=== PATIENT | female | born 1945 | race African-American/Black ===

== ENCOUNTER → 2016-07-10 | Outpatient (CLI) | payer MEDICARE, MEDICAID ==
[~2016-07-10] MED LIST: ALLO300 PO; AMLO-511 PO; ARIP15TA3 PO; ATOR20TA86 PO; BUSP15 PO; CARV6.2579 PO; DEXL60CA3 PO; FAMO20 PO; FURO40 PO; IPRA4AER IH; LETR2.5 PO; MIRT15 PO; MULT-178 PO; POTA8CAP10 PO; QUET200T PO; TRAZ150 PO; VALS160T2 PO; VENL-67 PO; WARF3TAB29 PO
[2016-07-10 12:14] LABS: BASOPHILS # (AUTO) 0.02 K/uL (0.00-0.20); BASOPHILS % (AUTO) 0.6 % (0.0-2.0); EOSINOPHILS # (AUTO) 0.01 K/uL (0.00-0.70); EOSINOPHILS % (AUTO) 0.19 % (1.0-6.0); HEMATOCRIT 27.9 % (36-46); LYMPHOCYTES % (AUTO) 23.5 % (22.0-44.0); MEAN CORPUSCULAR HEMOGLOBIN 27.5 pg (26.0-34.0); MEAN CORPUSCULAR HGB CONC 32.2 G/dL (31.0-37.0); MEAN CORPUSCULAR VOLUME 85 fL (80-100); MONOCYTES # (AUTO) 0.3 K/uL (0.1-1.0); MONOCYTES % (AUTO) 6.8 % (2.0-9.0); NEUTROPHILS # (AUTO) 2.8 K/uL (1.8-7.7); PLATELET COUNT (AUTO) 186 K/uL (150-450); RED BLOOD CELL COUNT(AUTO) 3.26 MIL/uL (4.00-5.20); RED CELL DISTRIBUTION WIDTH 18.8 % (11.5-14.5); WHITE BLOOD COUNT (AUTO) 4.1 K/uL (4.5-11.0)
[2016-07-10 12:19] LABS: HEMOGLOBIN A1C 5.4 % (4.5-6.2)
[2016-07-10 12:29] LABS: ALBUMIN 3.3 g/dL (3.4-5.0); BILIRUBIN,TOTAL 0.2 mg/dL (0.1-1.0); CALCIUM, TOTAL 9.3 mg/dL (8.8-10.5); CHOL/HDL RATIO 2.2 (3.9-5.7); CREATININE 1.98 mg/dL (0.60-1.30); POTASSIUM 4.6 mmol/L (3.5-5.1); THYROID STIMULATING HORMONE 2.44 uIU/mL (0.36-3.74); TOTAL PROTEIN, SERUM 6.7 g/dL (6.4-8.2)
== END | disposition home or self-care (01) ==
LOC: LABPV 10:26
PROVIDERS: ATTEND Internal Medicine Cardiovascular Disease
DX: I11.0 Hypertensive heart disease with heart failure (principal); I50.9 Heart failure, unspecified; E11.8 Type 2 diabetes mellitus with unspecified complications; E55.9 Vitamin D deficiency, unspecified
CPT/HCPCS: 82306; 83036; 84439; 84443

== ENCOUNTER 2017-08-03 12:33 | Emergency (ER) | payer MEDICARE, MEDICAID ==
[~2017-08-03] VITALS: Ht 165.1 cm; Wt 86.4 kg
[~2017-08-03 12:33] MED LIST changes: +ARIP15TA2 PO; -ARIP15TA3 PO
[2017-08-03] MEDS ORDERED: APIX2.5T PO (12:50)
[2017-08-03] MEDS ORDERED: LORA1TAB3 PO (12:50)
[2017-08-03] MEDS ORDERED: DEXL60CA3 PO (12:50)
[2017-08-03] MEDS ORDERED: BUME1TAB17 PO (12:50)
[2017-08-03] MEDS ORDERED: ASPI-556 PO (12:50)
[2017-08-03] MEDS ORDERED: PANT40TA25 PO (12:50)
[2017-08-03] MEDS ORDERED: ALPR0.255 PO (12:50)
[2017-08-03] MEDS ORDERED: CAPT12.55 PO (12:50)
[2017-08-03 15:02] LABS: BASOPHILS % (AUTO) 1.1 % (0.0-2.0); EOSINOPHILS % (AUTO) 0.5 % (1.0-6.0); HEMATOCRIT 33.4 % (36-46); HEMOGLOBIN 11.1 g/dL (12.0-16.0); LYMPHOCYTES # (AUTO) 1.2 K/uL (1.0-4.8); LYMPHOCYTES % (AUTO) 17.8 % (22.0-44.0); MEAN CORPUSCULAR HEMOGLOBIN 28.2 pg (26.0-34.0); MEAN CORPUSCULAR HGB CONC 33.2 G/dL (31.0-37.0); MEAN CORPUSCULAR VOLUME 85 fL (80-100); MONOCYTES # (AUTO) 0.4 K/uL (0.1-1.0); MONOCYTES % (AUTO) 5.8 % (2.0-9.0); NEUTROPHILS # (AUTO) 4.8 K/uL (1.8-7.7); NEUTROPHILS % (AUTO) 74.8 % (40.0-70.0); PLATELET COUNT (AUTO) 195 K/uL (150-450); RED BLOOD CELL COUNT(AUTO) 3.94 MIL/uL (4.00-5.20); RED CELL DISTRIBUTION WIDTH 15.7 % (11.5-14.5)
[2017-08-03 15:10] LABS: ANION GAP 0 mmol/L (8-16); CALCIUM, TOTAL 10.4 mg/dL (8.8-10.5); CARBON DIOXIDE 32 mmol/L (22-29); CHLORIDE 100 mmol/L (98-107); GLOMERULAR FILTR. RATE CALC 36 mL/min (>60); GLUCOSE,RANDOM 100 mg/dL (70-110); POTASSIUM 3.6 mmol/L (3.5-5.1); SODIUM SERUM 132 mmol/L (136-145); UREA NITROGEN, BLOOD 29 mg/dL (7-18)
[2017-08-03 15:26] LABS: B-TYPE NATRIURETIC PEPTIDE 243 pg/mL (0-100)
[2017-08-03 15:32] LABS: ALANINE AMINOTRANSFERASE 32 U/L (12-78); ALBUMIN 3.9 g/dL (3.4-5.0); ALKALINE PHOSPHATASE 152 U/L (46-116); ASPARTATE AMINOTRANSFERASE 44 U/L (15-37); BILIRUBIN,TOTAL 0.4 mg/dL (0.1-1.0); CREATINE KINASE MB 4.4 ng/mL (0-5); TOTAL PROTEIN, SERUM 7.3 g/dL (6.4-8.2)
[2017-08-03 15:35] LABS: CREATINE KINASE, TOTAL 1460 U/L (26-192)
[2017-08-03 16:30] VITALS: BP 146/100
== END 2017-08-03 17:31 | disposition home or self-care (01) ==
LOC: EMS 12:34
DX: J44.9 Chronic obstructive pulmonary disease, unspecified (principal); J45.909 Unspecified asthma, uncomplicated; I11.0 Hypertensive heart disease with heart failure; I50.9 Heart failure, unspecified; Z95.0 Presence of cardiac pacemaker; Z79.82 Long term (current) use of aspirin
CPT/HCPCS: 93005; 93971; 99285

== ENCOUNTER 2017-10-29 17:20 | Emergency (ER) | payer MEDICARE, MEDICAID ==
[~2017-10-29] VITALS: Ht 167.6 cm; Wt 0.9 kg
[~2017-10-29 17:20] MED LIST changes: +ALPR0.255 PO; -AMLO-511 PO; +APIX2.5T PO; +ASPI-556 PO; +BUME1TAB17 PO; +CAPT12.55 PO; +LORA1TAB3 PO; +PANT40TA25 PO; -WARF3TAB29 PO
[2017-10-29] MEDS ORDERED: ACETAMINOPHEN 500 MG TABLET PO ONE (17:45)
[2017-10-29 17:58] LABS: GLUCOSE,POINT OF CARE 106 MG/DL (70-110)
[2017-10-29 18:10] LABS: BASOPHILS % (AUTO) 1.2 % (0.0-2.0); EOSINOPHILS % (AUTO) 0.7 % (1.0-6.0); HEMATOCRIT 32.5 % (36-46); HEMOGLOBIN 10.8 g/dL (12.0-16.0); LYMPHOCYTES # (AUTO) 1.1 K/uL (1.0-4.8); LYMPHOCYTES % (AUTO) 17.4 % (22.0-44.0); MEAN CORPUSCULAR HEMOGLOBIN 28.3 pg (26.0-34.0); MEAN CORPUSCULAR HGB CONC 33.1 G/dL (31.0-37.0); MEAN CORPUSCULAR VOLUME 86 fL (80-100); MONOCYTES # (AUTO) 0.5 K/uL (0.1-1.0); MONOCYTES % (AUTO) 8.3 % (2.0-9.0); NEUTROPHILS # (AUTO) 4.7 K/uL (1.8-7.7); NEUTROPHILS % (AUTO) 72.4 % (40.0-70.0); PLATELET COUNT (AUTO) 161 K/uL (150-450); RED BLOOD CELL COUNT(AUTO) 3.81 MIL/uL (4.00-5.20); RED CELL DISTRIBUTION WIDTH 17.1 % (11.5-14.5)
[2017-10-29 18:19] LABS: CALCIUM, TOTAL 10.1 mg/dL (8.8-10.5); CREATININE 1.28 mg/dL (0.60-1.30); POTASSIUM 3.5 mmol/L (3.5-5.1)
[2017-10-29 18:25] LABS: ALBUMIN 3.4 g/dL (3.4-5.0); BILIRUBIN,TOTAL 0.4 mg/dL (0.1-1.0)
[2017-10-29 21:56] VITALS: BP 163/77
== END 2017-10-29 22:33 | disposition home or self-care (01) ==
LOC: EMS 17:21
DX: M79.632 Pain in left forearm (principal); M19.90 Unspecified osteoarthritis, unspecified site; I48.91 Unspecified atrial fibrillation; J45.909 Unspecified asthma, uncomplicated; I11.0 Hypertensive heart disease with heart failure; I50.9 Heart failure, unspecified; E11.9 Type 2 diabetes mellitus without complications; Z95.0 Presence of cardiac pacemaker; Z79.899 Other long term (current) drug therapy
CPT/HCPCS: 51701; 70450; 93005; 93971; 99285

== ENCOUNTER → 2018-08-09 | Outpatient (CLI) | payer MEDICARE, MEDICAID ==
[~2018-08-09] MED LIST changes: -ALPR0.255 PO; +ARIP10TA8 PO; -ARIP15TA2 PO; -ASPI-556 PO; -BUME1TAB17 PO; -CAPT12.55 PO; +CEPH500 PO; -DEXL60CA3 PO; +LOSA50TA64 PO; -PANT40TA25 PO; -QUET200T PO; -VENL-67 PO; +VENL-68 PO
[2018-08-09 12:26] LABS: BASOPHILS % (AUTO) 0.9 % (0.0-2.0); EOSINOPHILS % (AUTO) 0.1 % (1.0-6.0); HEMATOCRIT 37.3 % (36-46); HEMOGLOBIN 11.9 g/dL (12.0-16.0); LYMPHOCYTES # (AUTO) 1.2 K/uL (1.0-4.8); LYMPHOCYTES % (AUTO) 23.3 % (22.0-44.0); MEAN CORPUSCULAR HEMOGLOBIN 27.5 pg (26.0-34.0); MEAN CORPUSCULAR HGB CONC 31.9 G/dL (31.0-37.0); MEAN CORPUSCULAR VOLUME 86 fL (80-100); MONOCYTES # (AUTO) 0.4 K/uL (0.1-1.0); MONOCYTES % (AUTO) 7.3 % (2.0-9.0); NEUTROPHILS # (AUTO) 3.5 K/uL (1.8-7.7); NEUTROPHILS % (AUTO) 68.4 % (40.0-70.0); PLATELET COUNT (AUTO) 167 K/uL (150-450); RED BLOOD CELL COUNT(AUTO) 4.33 MIL/uL (4.00-5.20); RED CELL DISTRIBUTION WIDTH 17.6 % (11.5-14.5)
[2018-08-09 12:46] LABS: HEMOGLOBIN A1C 5.9 % (4.5-6.2)
[2018-08-09 12:58] LABS: ALBUMIN 3.6 g/dL (3.4-5.0); BILIRUBIN,TOTAL 0.5 mg/dL (0.1-1.0); CALCIUM, TOTAL 10.2 mg/dL (8.8-10.5); CHOL/HDL RATIO 2.7 (3.9-5.7); CREATININE 1.91 mg/dL (0.60-1.30); FREE T4 (FREE THYROXINE) 1.15 ng/dL (0.76-1.46); MAGNESIUM 2.3 mg/dL (1.80-2.40); THYROID STIMULATING HORMONE 1.91 uIU/mL (0.36-3.74); TOTAL PROTEIN, SERUM 7.6 g/dL (6.4-8.2)
== END | disposition home or self-care (01) ==
LOC: LABPV 11:10
PROVIDERS: ATTEND Internal Medicine Cardiovascular Disease
DX: I11.0 Hypertensive heart disease with heart failure (principal); I50.9 Heart failure, unspecified; E11.9 Type 2 diabetes mellitus without complications; E55.9 Vitamin D deficiency, unspecified; D56.5 Hemoglobin E-beta thalassemia
CPT/HCPCS: 82306; 83036; 83735; 84439; 84443

== ENCOUNTER → 2019-03-31 | Outpatient (CLI) | payer MEDICARE, MEDICAID ==
[~2019-03-31] MED LIST changes: +LORA-1000 PO; -LORA1TAB3 PO; +MIRT-92 PO; -MIRT15 PO; -POTA8CAP10 PO; +POTA8CAP20 PO
[2019-03-31 10:15] LABS: BASOPHILS % (AUTO) 0.7 % (0.0-2.0); EOSINOPHILS % (AUTO) 1.3 % (1.0-6.0); HEMATOCRIT 30.6 % (36-46); HEMOGLOBIN 9.9 g/dL (12.0-16.0); LYMPHOCYTES # (AUTO) 1.2 K/uL (1.0-4.8); LYMPHOCYTES % (AUTO) 19.9 % (22.0-44.0); MEAN CORPUSCULAR HEMOGLOBIN 27.5 pg (26.0-34.0); MEAN CORPUSCULAR HGB CONC 32.3 G/dL (31.0-37.0); MEAN CORPUSCULAR VOLUME 85 fL (80-100); MONOCYTES # (AUTO) 0.4 K/uL (0.1-1.0); MONOCYTES % (AUTO) 6.7 % (2.0-9.0); NEUTROPHILS # (AUTO) 4.2 K/uL (1.8-7.7); NEUTROPHILS % (AUTO) 71.4 % (40.0-70.0); PLATELET COUNT (AUTO) 160 K/uL (150-450); RED BLOOD CELL COUNT(AUTO) 3.59 MIL/uL (4.00-5.20); RED CELL DISTRIBUTION WIDTH 16.9 % (11.5-14.5)
[2019-03-31 10:48] LABS: ALBUMIN 3.4 g/dL (3.4-5.0); BILIRUBIN,TOTAL 0.5 mg/dL (0.1-1.0); CALCIUM, TOTAL 9.5 mg/dL (8.8-10.5); CHOL/HDL RATIO 2.3 (3.9-5.7); CREATININE 1.32 mg/dL (0.60-1.30); FREE T4 (FREE THYROXINE) 1.17 ng/dL (0.76-1.46); HEMOGLOBIN A1C 5.7 % (4.5-6.2); POTASSIUM 3.7 mmol/L (3.5-5.1); THYROID STIMULATING HORMONE 2.44 uIU/mL (0.36-3.74); TOTAL PROTEIN, SERUM 6.7 g/dL (6.4-8.2)
== END | disposition home or self-care (01) ==
LOC: LABPV 08:52
PROVIDERS: ATTEND Internal Medicine Cardiovascular Disease
DX: I11.0 Hypertensive heart disease with heart failure (principal); I50.9 Heart failure, unspecified; E11.8 Type 2 diabetes mellitus with unspecified complications; E55.9 Vitamin D deficiency, unspecified; D56.5 Hemoglobin E-beta thalassemia
CPT/HCPCS: 82306; 83036; 83735; 84439; 84443

== ENCOUNTER → 2019-05-31 | Outpatient (CLI) | payer MEDICARE, MEDICAID ==
[~2019-05-31] MED LIST changes: +LOSA-88 PO; -LOSA50TA64 PO
[2019-05-31 11:38] LABS: BASOPHILS % (AUTO) 0.9 % (0.0-2.0); HEMATOCRIT 34.8 % (36-46); HEMOGLOBIN 11.2 g/dL (12.0-16.0); LYMPHOCYTES # (AUTO) 1.3 K/uL (1.0-4.8); LYMPHOCYTES % (AUTO) 25.9 % (22.0-44.0); MEAN CORPUSCULAR HEMOGLOBIN 26.7 pg (26.0-34.0); MEAN CORPUSCULAR HGB CONC 32.3 G/dL (31.0-37.0); MEAN CORPUSCULAR VOLUME 83 fL (80-100); MONOCYTES # (AUTO) 0.4 K/uL (0.1-1.0); NEUTROPHILS # (AUTO) 3.2 K/uL (1.8-7.7); NEUTROPHILS % (AUTO) 64.2 % (40.0-70.0); PLATELET COUNT (AUTO) 159 K/uL (150-450)
[2019-05-31 11:45] LABS: ALBUMIN 3.7 g/dL (3.4-5.0); BILIRUBIN,TOTAL 0.4 mg/dL (0.1-1.0); CALCIUM, TOTAL 10.5 mg/dL (8.8-10.5); CHOL/HDL RATIO 2.6 (3.9-5.7); CREATININE 1.46 mg/dL (0.60-1.30); POTASSIUM 3.8 mmol/L (3.5-5.1); TOTAL PROTEIN, SERUM 7.5 g/dL (6.4-8.2)
== END | disposition home or self-care (01) ==
LOC: LABPV 09:29
PROVIDERS: ATTEND Internal Medicine Cardiovascular Disease
DX: I11.0 Hypertensive heart disease with heart failure (principal); I50.9 Heart failure, unspecified; E11.8 Type 2 diabetes mellitus with unspecified complications; E55.9 Vitamin D deficiency, unspecified; D56.5 Hemoglobin E-beta thalassemia

== ENCOUNTER 2019-10-10 21:33 | Inpatient (IN) | payer MEDICARE, MEDICAID ==
[~2019-10-10] VITALS: Ht 165.1 cm; Wt 81.1 kg
[~2019-10-10 21:33] MED LIST changes: -CEPH500 PO; -FURO40 PO; -LETR2.5 PO; -LORA-1000 PO; -LOSA-88 PO; +LOSA50TA37 PO; -MIRT-92 PO; -POTA8CAP20 PO; -TRAZ150 PO; -VALS160T2 PO
[2019-10-10] MEDS ORDERED: FURO40 PO (22:02)
[2019-10-11 00:41] LABS: LYMPHOCYTES # (AUTO) 0.6 K/uL (1.0-4.8); NEUTROPHILS # (AUTO) 3.7 K/uL (1.8-7.7)
[2019-10-11 00:44] LABS: BASOPHILS % (AUTO) 0.7 % (0.0-2.0); EOSINOPHILS % (AUTO) 0.1 % (1.0-6.0); HEMATOCRIT 29.6 % (36-46); HEMOGLOBIN 9.9 g/dL (12.0-16.0); LYMPHOCYTES % (AUTO) 12.1 % (22.0-44.0); MEAN CORPUSCULAR HEMOGLOBIN 28.3 pg (26.0-34.0); MEAN CORPUSCULAR HGB CONC 33.3 G/dL (31.0-37.0); MEAN CORPUSCULAR VOLUME 85 fL (80-100); MONOCYTES # (AUTO) 0.4 K/uL (0.1-1.0); MONOCYTES % (AUTO) 8.2 % (2.0-9.0); NEUTROPHILS % (AUTO) 78.9 % (40.0-70.0); PLATELET COUNT (AUTO) 162 K/uL (150-450); RED BLOOD CELL COUNT(AUTO) 3.48 MIL/uL (4.00-5.20); RED CELL DISTRIBUTION WIDTH 16.5 % (11.5-14.5)
[2019-10-11 00:54] LABS: ANION GAP 12 mmol/L (8-16); CALCIUM, TOTAL 9.1 mg/dL (8.8-10.5); CARBON DIOXIDE 27 mmol/L (22-29); CHLORIDE 102 mmol/L (98-107); CREATININE 1.34 mg/dL (0.60-1.30); GLOMERULAR FILTR. RATE CALC 47 mL/min (>60); GLUCOSE,RANDOM 107 mg/dL (70-110); POTASSIUM 4.3 mmol/L (3.5-5.1); SODIUM SERUM 141 mmol/L (136-145); UREA NITROGEN, BLOOD 13 mg/dL (7-18)
[2019-10-11 01:00] LABS: ALANINE AMINOTRANSFERASE 29 U/L (12-78); ALBUMIN 3.2 g/dL (3.4-5.0); ALKALINE PHOSPHATASE 117 U/L (46-116); ASPARTATE AMINOTRANSFERASE 21 U/L (15-37); BILIRUBIN,TOTAL 0.6 mg/dL (0.1-1.0); LIPASE 32 U/L (73-393); TOTAL PROTEIN, SERUM 6.2 g/dL (6.4-8.2)
[2019-10-11 01:06] LABS: B-TYPE NATRIURETIC PEPTIDE 460 pg/mL (0-100)
[2019-10-11] MEDS ORDERED: FUROSEMIDE 40 MG/4 ML VIAL IVP ONE (02:00)
[2019-10-11] MEDS: OXYGEN THERAPY IH SCH ×2 (02:11→07:09)
[2019-10-11] MEDS ORDERED: ONDANSETRON HCL 4 MG/2 ML VIAL IVP PRN ×2 (02:15→13:30)
[2019-10-11] MEDS ORDERED: ACETAMINOPHEN 325 MG TABLET PO PRN ×2 (02:15→13:30)
[2019-10-11] MEDS ORDERED: CARVEDILOL 3.125 MG TABLET PO ONE (02:15)
[2019-10-11] MEDS ORDERED: APIXABAN 2.5 MG TABLET PO ONE (02:15)
[2019-10-11] MEDS ORDERED: 0.9% SODIUM CHLORIDE 10 ML SYRINGE IVP PRN (02:15)
[2019-10-11] MEDS ORDERED: ARIPiprazole 10 MG TABLET PO ONE (02:15)
[2019-10-11 02:25] LABS: AMPHET/METH SCREEN,URINE NEGATIVE (NEGATIVE); BARBITURATE SCREEN, URINE NEGATIVE (NEGATIVE); BENZODIAZEPINES SCREEN,URINE NEGATIVE (NEGATIVE); CANNABINOID SCREEN,URINE NEGATIVE (NEGATIVE); COCAINE SCREEN,URINE NEGATIVE (NEGATIVE); METHADONE SCREEN, URINE NEGATIVE (NEGATIVE); OPIATE SCREEN,URINE NEGATIVE (NEGATIVE)
[2019-10-11 02:27] LABS: PHENCYCLIDINE SCREEN,URINE NEGATIVE (NEGATIVE)
[2019-10-11 07:31] LABS: GLUCOSE,POINT OF CARE 94 MG/DL (70-110)
[2019-10-11 10:45] VITALS: BP 148/57
[2019-10-11 12:13] LABS: GLUCOMETER DEV NAME(LOC) AHU.; GLUCOSE,POINT OF CARE 98 MG/DL (70-110)
[2019-10-11 12:41] VITALS: BP 162/65
[2019-10-11] MEDS ORDERED: BISACODYL 10 MG RECTAL RECTAL SUPPOSITORY PR PRN (13:30)
[2019-10-11] MEDS ORDERED: MORPHINE SULFATE 2 MG/ML SYRINGE IVP PRN (13:30)
[2019-10-11] MEDS ORDERED: MAGNESIUM HYDROXIDE SUSPENSION 30 ML UDCUP PO PRN (13:30)
[2019-10-11] MEDS ORDERED: MULT-660 PO (13:40)
[2019-10-11 14:17] VITALS: BP 140/72
[2019-10-11 15:51] VITALS: BP 155/65
[2019-10-11] MEDS: HYDROCODONE/ACETAMINOPHEN 5-325 MG TABLET PO PRN ×2 (15:59→20:05)
[2019-10-11 17:34] LABS: C-REACTIVE PROTEIN QUANT 0.4 mg/dL (0.00-0.30)
[2019-10-11 18:00] LABS: D-DIMER 0.32 mg/L FEU (0.00-0.50); INR 1.2 (0.9-1.1); PROTHROMBIN TIME 12.3 SEC (9.4-11.6)
[2019-10-11 19:30] VITALS: BP 147/71
[2019-10-11] MEDS: ARIPiprazole 10 MG TABLET PO SCH (20:05)
[2019-10-11] MEDS: BusPIRone HCL 15 MG TABLET PO SCH (20:06)
[2019-10-11] MEDS: FUROSEMIDE 20 MG/2 ML VIAL IVP SCH (20:06)
[2019-10-11] MEDS: CARVEDILOL 6.25 MG TABLET PO SCH (20:06)
[2019-10-11] MEDS: DOCUSATE SODIUM 100 MG CAPSULE PO SCH (20:06)
[2019-10-11] MEDS: APIXABAN 2.5 MG TABLET PO SCH (20:06)
[2019-10-11 20:52] LABS: GLUCOMETER DEV NAME(LOC) AHU.; GLUCOSE,POINT OF CARE 113 MG/DL (70-110)
[2019-10-11 22:30] VITALS: BP 158/70
[2019-10-12 00:30] VITALS: BP 140/79
[2019-10-12] MEDS: ALBUTEROL SULFATE HFA 90 MCG/PUFF 8 GM INHALER IH PRN ×2 (04:49→12:14)
[2019-10-12 04:50] VITALS: BP 115/77
[2019-10-12] MEDS: HYDROCODONE/ACETAMINOPHEN 5-325 MG TABLET PO PRN (04:59)
[2019-10-12 06:39] LABS: BASOPHILS % (AUTO) 0.9 % (0.0-2.0); EOSINOPHILS % (AUTO) 0.2 % (1.0-6.0); HEMATOCRIT 33.3 % (36-46); HEMOGLOBIN 10.9 g/dL (12.0-16.0); LYMPHOCYTES # (AUTO) 0.6 K/uL (1.0-4.8); LYMPHOCYTES % (AUTO) 14.1 % (22.0-44.0); MEAN CORPUSCULAR HGB CONC 32.8 G/dL (31.0-37.0); MEAN CORPUSCULAR VOLUME 85 fL (80-100); MONOCYTES # (AUTO) 0.4 K/uL (0.1-1.0); MONOCYTES % (AUTO) 9.5 % (2.0-9.0); NEUTROPHILS # (AUTO) 3.2 K/uL (1.8-7.7); NEUTROPHILS % (AUTO) 75.3 % (40.0-70.0); PLATELET COUNT (AUTO) 163 K/uL (150-450); RED CELL DISTRIBUTION WIDTH 16.4 % (11.5-14.5)
[2019-10-12 07:10] LABS: ALBUMIN 3.6 g/dL (3.4-5.0); BILIRUBIN,TOTAL 0.7 mg/dL (0.1-1.0); CALCIUM, TOTAL 9.6 mg/dL (8.8-10.5); CREATININE 1.24 mg/dL (0.60-1.30); MAGNESIUM 2.1 mg/dL (1.80-2.40); POTASSIUM 4.5 mmol/L (3.5-5.1); TOTAL PROTEIN, SERUM 6.5 g/dL (6.4-8.2)
[2019-10-12 08:39] VITALS: BP 145/86
[2019-10-12] MEDS: LOSARTAN POTASSIUM 50 MG TABLET PO SCH (08:39)
[2019-10-12] MEDS: FUROSEMIDE 20 MG/2 ML VIAL IVP SCH ×2 (08:39→20:51)
[2019-10-12] MEDS: DOCUSATE SODIUM 100 MG CAPSULE PO SCH ×2 (08:39→20:51)
[2019-10-12] MEDS: CARVEDILOL 6.25 MG TABLET PO SCH ×2 (08:39→20:51)
[2019-10-12] MEDS: PANTOPRAZOLE SODIUM 40 MG DR TABLET PO SCH (08:39)
[2019-10-12] MEDS: BusPIRone HCL 15 MG TABLET PO SCH ×2 (08:58→20:51)
[2019-10-12] MEDS: ALLOPURINOL 300 MG TABLET PO SCH (08:58)
[2019-10-12] MEDS: VENLAFAXINE HCL 150 MG ER CAPSULE PO SCH (08:58)
[2019-10-12] MEDS: APIXABAN 2.5 MG TABLET PO SCH ×2 (08:59→22:47)
[2019-10-12] MEDS ORDERED: CARV6 PO (11:13)
[2019-10-12 11:25] VITALS: BP 149/78
[2019-10-12] MEDS: LORazepam 1 MG TABLET PO PRN ×2 (12:08→20:51)
[2019-10-12 16:12] VITALS: BP 134/70
[2019-10-12 18:46] LABS: GLUCOMETER DEV NAME(LOC) 5S.2A; GLUCOSE,POINT OF CARE 106 MG/DL (70-110)
[2019-10-12] MEDS: ARIPiprazole 10 MG TABLET PO SCH (20:51)
[2019-10-12 20:54] VITALS: BP 128/52
[2019-10-13 00:30] VITALS: BP 126/65
[2019-10-13] MEDS: HYDROCODONE/ACETAMINOPHEN 5-325 MG TABLET PO PRN ×2 (04:22→20:14)
[2019-10-13 04:33] VITALS: BP 121/67
[2019-10-13 06:45] LABS: BASOPHILS % (AUTO) 0.7 % (0.0-2.0); EOSINOPHILS % (AUTO) 0.3 % (1.0-6.0); HEMATOCRIT 32.2 % (36-46); HEMOGLOBIN 10.4 g/dL (12.0-16.0); LYMPHOCYTES # (AUTO) 0.6 K/uL (1.0-4.8); LYMPHOCYTES % (AUTO) 13.1 % (22.0-44.0); MEAN CORPUSCULAR HEMOGLOBIN 27.9 pg (26.0-34.0); MEAN CORPUSCULAR HGB CONC 32.4 G/dL (31.0-37.0); MEAN CORPUSCULAR VOLUME 86 fL (80-100); MONOCYTES # (AUTO) 0.5 K/uL (0.1-1.0); MONOCYTES % (AUTO) 10.8 % (2.0-9.0); NEUTROPHILS # (AUTO) 3.3 K/uL (1.8-7.7); NEUTROPHILS % (AUTO) 75.1 % (40.0-70.0); PLATELET COUNT (AUTO) 160 K/uL (150-450); RED BLOOD CELL COUNT(AUTO) 3.74 MIL/uL (4.00-5.20); RED CELL DISTRIBUTION WIDTH 16.9 % (11.5-14.5)
[2019-10-13 07:05] LABS: ALBUMIN 3.3 g/dL (3.4-5.0); BILIRUBIN,TOTAL 0.5 mg/dL (0.1-1.0); CALCIUM, TOTAL 9.4 mg/dL (8.8-10.5); CREATININE 1.1 mg/dL (0.60-1.30); MAGNESIUM 2.1 mg/dL (1.80-2.40); POTASSIUM 4.5 mmol/L (3.5-5.1); TOTAL PROTEIN, SERUM 6.6 g/dL (6.4-8.2)
[2019-10-13 08:13] LABS: HEMOGLOBIN A1C 5.4 % (3.8-5.6)
[2019-10-13] MEDS ORDERED: DIGOXIN 250 MCG/ML 2 ML AMP IVP ONE (08:30)
[2019-10-13 08:31] VITALS: BP 137/77
[2019-10-13] MEDS: FUROSEMIDE 20 MG/2 ML VIAL IVP SCH ×2 (10:00→20:14)
[2019-10-13] MEDS: ALLOPURINOL 300 MG TABLET PO SCH (10:01)
[2019-10-13] MEDS: APIXABAN 2.5 MG TABLET PO SCH ×2 (10:01→20:14)
[2019-10-13] MEDS: LOSARTAN POTASSIUM 50 MG TABLET PO SCH (10:02)
[2019-10-13] MEDS: DOCUSATE SODIUM 100 MG CAPSULE PO SCH ×2 (10:02→20:14)
[2019-10-13] MEDS: BusPIRone HCL 15 MG TABLET PO SCH ×2 (10:03→20:13)
[2019-10-13] MEDS: CARVEDILOL 6.25 MG TABLET PO SCH ×2 (10:04→20:13)
[2019-10-13] MEDS: PANTOPRAZOLE SODIUM 40 MG DR TABLET PO SCH (10:04)
[2019-10-13] MEDS: VENLAFAXINE HCL 150 MG ER CAPSULE PO SCH (10:07)
[2019-10-13 11:36] VITALS: BP 120/83
[2019-10-13] MEDS: LORazepam 1 MG TABLET PO PRN (14:22)
[2019-10-13 15:07] VITALS: BP 113/64
[2019-10-13 15:07] LABS: ABG METHEMOGLOBIN 0.3 % (0.0-1.5); ABG OXYGEN CONTENT 13.5 mL/dL (15.0-23.0); SOURCE, BLOOD GAS ARTERIAL; TEMPERATURE, FAHRENHEIT, BG 98.6 FAHREN (96.0-98.6)
[2019-10-13 15:12] LABS: ABG A-A DIFF O2 38.5 mmHg (10-20.0); ABG BASE EXCESS 3.2 mmol/L (-2.0-3.0); ABG HCO3 26.7 mmol/L (22.0-26.0); ABG OXYGEN SATURATION 89.4 % (95.0-98.0); ABG OXYHEMOGLOBIN 87.3 % (94.0-100.0); ABG PCO2 47 mmHg (35-45); ABG PH 7.397 (7.35-7.450); PO2, ARTERIAL BG 55.4 mmHg (75.0-83.0)
[2019-10-13 15:13] LABS: O2 DEVICE,BLOOD GAS ROOM AIR (ROOM AIR); SITE, BLOOD GAS LFT RADIAL
[2019-10-13] MEDS: ARIPiprazole 10 MG TABLET PO SCH (20:13)
[2019-10-13 21:13] VITALS: BP 119/70
[2019-10-13] MEDS: ZOLPIDEM TARTRATE 5 MG TABLET PO PRN (22:51)
[2019-10-14 00:35] VITALS: BP 116/61
[2019-10-14 06:30] VITALS: BP 125/58
[2019-10-14 07:13] LABS: BASOPHILS % (AUTO) 0.8 % (0.0-2.0); EOSINOPHILS % (AUTO) 0.2 % (1.0-6.0); HEMATOCRIT 31.6 % (36-46); HEMOGLOBIN 10.2 g/dL (12.0-16.0); LYMPHOCYTES # (AUTO) 0.9 K/uL (1.0-4.8); LYMPHOCYTES % (AUTO) 18.8 % (22.0-44.0); MEAN CORPUSCULAR HEMOGLOBIN 27.6 pg (26.0-34.0); MEAN CORPUSCULAR HGB CONC 32.2 G/dL (31.0-37.0); MEAN CORPUSCULAR VOLUME 86 fL (80-100); MONOCYTES # (AUTO) 0.5 K/uL (0.1-1.0); MONOCYTES % (AUTO) 11.8 % (2.0-9.0); NEUTROPHILS # (AUTO) 3.1 K/uL (1.8-7.7); NEUTROPHILS % (AUTO) 68.4 % (40.0-70.0); PLATELET COUNT (AUTO) 142 K/uL (150-450); RED BLOOD CELL COUNT(AUTO) 3.69 MIL/uL (4.00-5.20); RED CELL DISTRIBUTION WIDTH 16.7 % (11.5-14.5)
[2019-10-14 07:34] LABS: ALANINE AMINOTRANSFERASE 27 U/L (12-78); ALKALINE PHOSPHATASE 118 U/L (46-116); ANION GAP 7 mmol/L (8-16); ASPARTATE AMINOTRANSFERASE 33 U/L (15-37); BILIRUBIN,TOTAL 0.5 mg/dL (0.1-1.0); CALCIUM, TOTAL 9.2 mg/dL (8.8-10.5); CARBON DIOXIDE 31 mmol/L (22-29); CHLORIDE 101 mmol/L (98-107); CREATININE 1.05 mg/dL (0.60-1.30); GLOMERULAR FILTR. RATE CALC > 60 mL/min (>60); GLUCOSE,RANDOM 80 mg/dL (70-110); POTASSIUM 5.5 mmol/L (3.5-5.1); SODIUM SERUM 139 mmol/L (136-145); TOTAL PROTEIN, SERUM 6.2 g/dL (6.4-8.2); UREA NITROGEN, BLOOD 21 mg/dL (7-18)
[2019-10-14 07:49] VITALS: BP 127/57
[2019-10-14] MEDS: DOCUSATE SODIUM 100 MG CAPSULE PO SCH ×2 (09:00→20:40)
[2019-10-14] MEDS ORDERED: SODIUM ZIRCONIUM CYCLOSILICATE 5 GM POWDER PACKET PO ONE (09:45)
[2019-10-14] MEDS: VENLAFAXINE HCL 150 MG ER CAPSULE PO SCH (10:10)
[2019-10-14] MEDS: BusPIRone HCL 15 MG TABLET PO SCH ×2 (10:10→20:40)
[2019-10-14] MEDS: APIXABAN 2.5 MG TABLET PO SCH ×2 (10:10→20:40)
[2019-10-14] MEDS: CARVEDILOL 6.25 MG TABLET PO SCH ×2 (10:10→20:41)
[2019-10-14] MEDS: ALLOPURINOL 300 MG TABLET PO SCH (10:10)
[2019-10-14] MEDS: FUROSEMIDE 20 MG/2 ML VIAL IVP SCH ×2 (10:10→20:40)
[2019-10-14] MEDS: PANTOPRAZOLE SODIUM 40 MG DR TABLET PO SCH (10:10)
[2019-10-14] MEDS: LORazepam 1 MG TABLET PO PRN (11:46)
[2019-10-14 12:03] VITALS: BP 121/60
[2019-10-14 16:32] VITALS: BP 134/57
[2019-10-14] MEDS: LOSARTAN POTASSIUM 50 MG TABLET PO SCH (18:30)
[2019-10-14] MEDS: HYDROCODONE/ACETAMINOPHEN 5-325 MG TABLET PO PRN (18:30)
[2019-10-14] MEDS: ZOLPIDEM TARTRATE 5 MG TABLET PO PRN (20:40)
[2019-10-14] MEDS: ARIPiprazole 10 MG TABLET PO SCH (20:40)
[2019-10-14 21:15] VITALS: BP 112/64
[2019-10-15 00:02] VITALS: BP 106/71
[2019-10-15 03:35] VITALS: BP 99/61
[2019-10-15 06:54] LABS: BASOPHILS % (AUTO) 0.8 % (0.0-2.0); EOSINOPHILS % (AUTO) 0.1 % (1.0-6.0); HEMATOCRIT 29.5 % (36-46); HEMOGLOBIN 9.7 g/dL (12.0-16.0); LYMPHOCYTES # (AUTO) 0.8 K/uL (1.0-4.8); MEAN CORPUSCULAR HEMOGLOBIN 27.7 pg (26.0-34.0); MEAN CORPUSCULAR VOLUME 84 fL (80-100); MONOCYTES # (AUTO) 0.6 K/uL (0.1-1.0); MONOCYTES % (AUTO) 13.2 % (2.0-9.0); NEUTROPHILS # (AUTO) 3.1 K/uL (1.8-7.7); NEUTROPHILS % (AUTO) 68.9 % (40.0-70.0); PLATELET COUNT (AUTO) 138 K/uL (150-450); RED BLOOD CELL COUNT(AUTO) 3.51 MIL/uL (4.00-5.20); RED CELL DISTRIBUTION WIDTH 16.4 % (11.5-14.5)
[2019-10-15 07:00] VITALS: BP 116/64
[2019-10-15 07:18] LABS: BILIRUBIN,TOTAL 0.6 mg/dL (0.1-1.0); CALCIUM, TOTAL 9.2 mg/dL (8.8-10.5); CREATININE 1.18 mg/dL (0.60-1.30); MAGNESIUM 1.9 mg/dL (1.80-2.40); POTASSIUM 4.5 mmol/L (3.5-5.1); TOTAL PROTEIN, SERUM 5.6 g/dL (6.4-8.2)
[2019-10-15] MEDS: DOCUSATE SODIUM 100 MG CAPSULE PO SCH (09:14)
[2019-10-15] MEDS: LOSARTAN POTASSIUM 50 MG TABLET PO SCH (09:15)
[2019-10-15] MEDS: FUROSEMIDE 20 MG/2 ML VIAL IVP SCH (09:15)
[2019-10-15] MEDS: BusPIRone HCL 15 MG TABLET PO SCH (09:15)
[2019-10-15] MEDS: CARVEDILOL 6.25 MG TABLET PO SCH (09:16)
[2019-10-15] MEDS: PANTOPRAZOLE SODIUM 40 MG DR TABLET PO SCH (09:16)
[2019-10-15] MEDS: ALLOPURINOL 300 MG TABLET PO SCH (09:16)
[2019-10-15] MEDS: APIXABAN 2.5 MG TABLET PO SCH (09:16)
[2019-10-15] MEDS: VENLAFAXINE HCL 150 MG ER CAPSULE PO SCH (09:16)
[2019-10-15 11:00] VITALS: BP 142/68
[2019-10-15 15:20] VITALS: BP 136/70
[2019-10-15] MEDS ORDERED: FURO-152 PO (15:29)
== END 2019-10-15 18:30 | disposition home or self-care (01) | DRG 291 ==
LOC: EMS 21:33 → ICUN 10-11 09:54 → 5N 10-11 10:00 → 5S 10-11 16:55 → 5N 10-11 22:38 → 5S 10-14 23:10
PROVIDERS: ADMIT Hospitalist; ATTEND Hospitalist
DX: I13.0 Hypertensive heart and chronic kidney disease with heart failure and stage 1 through stage 4 chronic kidney disease, or unspecified chronic kidney disease (principal); I50.31 Acute diastolic (congestive) heart failure; I48.20 Chronic atrial fibrillation, unspecified; E78.5 Hyperlipidemia, unspecified; J44.9 Chronic obstructive pulmonary disease, unspecified; N18.9 Chronic kidney disease, unspecified; E66.9 Obesity, unspecified; I48.0 Paroxysmal atrial fibrillation; D64.9 Anemia, unspecified; F41.9 Anxiety disorder, unspecified; E11.22 Type 2 diabetes mellitus with diabetic chronic kidney disease; Z20.828 Contact with and (suspected) exposure to other viral communicable diseases; E87.5 Hyperkalemia; Z90.710 Acquired absence of both cervix and uterus; Z68.29 Body mass index [BMI] 29.0-29.9, adult; Z79.899 Other long term (current) drug therapy; Z85.118 Personal history of other malignant neoplasm of bronchus and lung
CPT/HCPCS: 82728; 82805; 83036; 83735; 85379; 85384; 86140; 87081; 92507; 92526; 92610; 93005; 97110; 97116; 97162; 97530; G0480; J1160; J1940; J2405; J3535; 36415-L1; 36415-TC; 71045-TC; U0003-CS

== ENCOUNTER 2019-10-28 22:06 | Inpatient (IN) | payer MEDICARE, MEDICAID ==
[~2019-10-28] VITALS: Ht 165.1 cm; Wt 75.6 kg
[~2019-10-28 22:06] MED LIST changes: +ALLO-45 PO; -ALLO300 PO; -ATOR20TA86 PO; +CARV6 PO; -CARV6.2579 PO; +FURO40 PO; -MULT-178 PO; +MULT-660 PO
[2019-10-28 22:30] LABS: BASOPHILS % (AUTO) 0.8 % (0.0-2.0); EOSINOPHILS % (AUTO) 0 % (1.0-6.0); HEMATOCRIT 34.5 % (36-46); HEMOGLOBIN 11.1 g/dL (12.0-16.0); LYMPHOCYTES # (AUTO) 0.7 K/uL (1.0-4.8); MEAN CORPUSCULAR HEMOGLOBIN 26.9 pg (26.0-34.0); MEAN CORPUSCULAR HGB CONC 32.1 G/dL (31.0-37.0); MEAN CORPUSCULAR VOLUME 84 fL (80-100); MONOCYTES # (AUTO) 0.5 K/uL (0.1-1.0); MONOCYTES % (AUTO) 11.7 % (2.0-9.0); NEUTROPHILS # (AUTO) 3.4 K/uL (1.8-7.7); NEUTROPHILS % (AUTO) 72.5 % (40.0-70.0); PLATELET COUNT (AUTO) 238 K/uL (150-450); RED BLOOD CELL COUNT(AUTO) 4.13 MIL/uL (4.00-5.20); RED CELL DISTRIBUTION WIDTH 16.4 % (11.5-14.5)
[2019-10-28 22:39] LABS: CALCIUM, TOTAL 9.6 mg/dL (8.8-10.5); CREATININE 1.55 mg/dL (0.60-1.30)
[2019-10-28 22:49] LABS: ALBUMIN 3.5 g/dL (3.4-5.0); BILIRUBIN,TOTAL 0.5 mg/dL (0.1-1.0); TOTAL PROTEIN, SERUM 6.9 g/dL (6.4-8.2)
[2019-10-28 22:58] LABS: INR 1.2 (0.9-1.1); PROTHROMBIN TIME 12.3 SEC (9.4-11.6)
[2019-10-28] MEDS ORDERED: ALBUTEROL SULFATE HFA 90 MCG/PUFF 8 GM INHALER IH PRN (23:45)
[2019-10-28] MEDS ORDERED: ACETAMINOPHEN 325 MG TABLET PO PRN (23:45)
[2019-10-29] MEDS ORDERED: FUROSEMIDE 40 MG/4 ML VIAL IVP ONE (01:15)
[2019-10-29] MEDS ORDERED: 0.9% SODIUM CHLORIDE 10 ML SYRINGE IVP PRN (01:15)
[2019-10-29] MEDS ORDERED: ACETAMINOPHEN 325 MG TABLET PO PRN (01:15)
[2019-10-29] MEDS ORDERED: ONDANSETRON HCL 4 MG/2 ML VIAL IVP PRN (01:15)
[2019-10-29 03:29] VITALS: BP 145/83
[2019-10-29 07:43] LABS: GLUCOSE,POINT OF CARE 108 MG/DL (70-110)
[2019-10-29 07:54] VITALS: BP 128/83
[2019-10-29] MEDS: DOCUSATE SODIUM 100 MG CAPSULE PO SCH ×2 (07:59→21:28)
[2019-10-29] MEDS: FAMOTIDINE 20 MG TABLET PO SCH (07:59)
[2019-10-29] MEDS: FUROSEMIDE 20 MG/2 ML VIAL IVP SCH (07:59)
[2019-10-29] MEDS ORDERED: CARVEDILOL 6.25 MG TABLET PO SCH (09:00)
[2019-10-29] MEDS: APIXABAN 2.5 MG TABLET PO SCH ×2 (09:00→21:28)
[2019-10-29 11:36] VITALS: BP 127/94
[2019-10-29] MEDS: LORazepam 0.5 MG TABLET PO SCH ×2 (12:35→21:28)
[2019-10-29 16:01] VITALS: BP 140/69
[2019-10-29 16:59] LABS: GLUCOMETER DEV NAME(LOC) 5N.1; GLUCOSE,POINT OF CARE 144 MG/DL (70-110)
[2019-10-29] MEDS: VENLAFAXINE HCL 150 MG ER CAPSULE PO SCH (17:06)
[2019-10-29] MEDS: BusPIRone HCL 15 MG TABLET PO SCH ×2 (17:06→21:29)
[2019-10-29 19:55] VITALS: BP 141/76
[2019-10-29] MEDS ORDERED: MIRTAZAPINE 15 MG TABLET PO SCH (21:00)
[2019-10-29] MEDS ORDERED: TraZODone HCL 150 MG TABLET PO SCH (21:00)
[2019-10-29] MEDS ORDERED: ARIPiprazole 10 MG TABLET PO SCH (21:00)
[2019-10-29] MEDS: CARVEDILOL 12.5 MG TABLET PO SCH (21:28)
[2019-10-29 23:53] VITALS: BP 129/80
[2019-10-30 04:05] VITALS: BP 141/74
[2019-10-30 07:35] LABS: CALCIUM, TOTAL 9.6 mg/dL (8.8-10.5); CREATININE 1.3 mg/dL (0.60-1.30); POTASSIUM 4.1 mmol/L (3.5-5.1)
[2019-10-30 07:42] LABS: BASOPHILS % (AUTO) 1.8 % (0.0-2.0); EOSINOPHILS % (AUTO) 0.2 % (1.0-6.0); HEMATOCRIT 33.8 % (36-46); HEMOGLOBIN 10.8 g/dL (12.0-16.0); LYMPHOCYTES # (AUTO) 0.8 K/uL (1.0-4.8); LYMPHOCYTES % (AUTO) 15.5 % (22.0-44.0); MEAN CORPUSCULAR HEMOGLOBIN 26.9 pg (26.0-34.0); MEAN CORPUSCULAR VOLUME 84 fL (80-100); MONOCYTES # (AUTO) 0.6 K/uL (0.1-1.0); MONOCYTES % (AUTO) 12.8 % (2.0-9.0); NEUTROPHILS # (AUTO) 3.4 K/uL (1.8-7.7); NEUTROPHILS % (AUTO) 69.7 % (40.0-70.0); PLATELET COUNT (AUTO) 184 K/uL (150-450); RED BLOOD CELL COUNT(AUTO) 4.02 MIL/uL (4.00-5.20); RED CELL DISTRIBUTION WIDTH 16.7 % (11.5-14.5)
[2019-10-30 08:35] VITALS: BP 144/89
[2019-10-30] MEDS: FUROSEMIDE 20 MG/2 ML VIAL IVP SCH (08:35)
[2019-10-30] MEDS: LORazepam 0.5 MG TABLET PO SCH (08:35)
[2019-10-30] MEDS: BusPIRone HCL 15 MG TABLET PO SCH (08:36)
[2019-10-30] MEDS: DOCUSATE SODIUM 100 MG CAPSULE PO SCH (08:36)
[2019-10-30] MEDS: VENLAFAXINE HCL 150 MG ER CAPSULE PO SCH (08:36)
[2019-10-30] MEDS: CARVEDILOL 12.5 MG TABLET PO SCH (08:36)
[2019-10-30] MEDS: APIXABAN 2.5 MG TABLET PO SCH (08:36)
[2019-10-30] MEDS: FAMOTIDINE 20 MG TABLET PO SCH (08:36)
[2019-10-30 12:37] VITALS: BP 118/67
[2019-10-30] MEDS ORDERED: CARVEDILOL 25 MG TABLET PO SCH (21:00)
== END 2019-10-30 15:25 | disposition home or self-care (01) | DRG 291 ==
LOC: EMS 22:06 → 5S 23:36 → 5N 23:36 → UNDOADMIN 23:36
PROVIDERS: ADMIT Internal Medicine; ATTEND Internal Medicine
DX: I13.0 Hypertensive heart and chronic kidney disease with heart failure and stage 1 through stage 4 chronic kidney disease, or unspecified chronic kidney disease (principal); I50.33 Acute on chronic diastolic (congestive) heart failure; E44.0 Moderate protein-calorie malnutrition; I48.20 Chronic atrial fibrillation, unspecified; M62.82 Rhabdomyolysis; F33.2 Major depressive disorder, recurrent severe without psychotic features; E11.22 Type 2 diabetes mellitus with diabetic chronic kidney disease; I42.8 Other cardiomyopathies; J44.9 Chronic obstructive pulmonary disease, unspecified; M10.9 Gout, unspecified; M19.90 Unspecified osteoarthritis, unspecified site; N18.3 Chronic kidney disease, stage 3 (moderate); Z79.01 Long term (current) use of anticoagulants; Z79.899 Other long term (current) drug therapy; Z85.3 Personal history of malignant neoplasm of breast; Z90.710 Acquired absence of both cervix and uterus; I25.2 Old myocardial infarction; Z03.818 Encounter for observation for suspected exposure to other biological agents ruled out; Z68.27 Body mass index [BMI] 27.0-27.9, adult
CPT/HCPCS: 71250; 87081; 93005; J1940; J3535; 36415-L1; 36415-TC; 71045-TC; U0003-CS